=== PATIENT | male | born 1980 | race Caucasian/White ===

== ENCOUNTER 2021-08-03 12:21 | Emergency (ER) | payer SELFPAY ==
[2021-08-03 12:57] VITALS: BP 216/152; PULSE 95; RESP 18; TEMP 36.5; O2SAT 100
--- NOTE | 2021-08-03 13:37 | ED.WOUNDLAC ---
HPI - Wound/Laceration General Chief Complaint: Wound/Laceration Stated Complaint: Laceration on finger Time Seen by Provider: 08/03/21 13:37 Source: patient Mode of arrival: ambulatory Limitations: no limitations History of Present Illness HPI narrative: 41-year-old male presents to the [facility] with complaints of a finger laceration. Patient states that he was cutting meat approximately 1150 today when the knife slipped and cut his finger. Bleeding is controlled. Last Tdap over 10 years. Related Data Home Medications Medication Instructions Recorded Confirmed No Home Medications 08/03/21 08/03/21 Allergies Allergy/AdvReac Type Severity Reaction Status Date / Time No Known Allergies Allergy Unverified 08/03/21 13:07 Review of Systems Review of Systems: All systems reviewed & are unremarkable except as noted in HPI and below Constitutional: Constitutional: Reports no additional constitutional complaints, Denies chills and Denies fever(s) Eyes: Eyes: Reports no additional eye complaints Cardiovascular: Cardiovascular: Reports no additional cardiovascular complaints Respiratory: Respiratory: Reports no additional respiratory complaints, Denies cough and Denies dyspnea Musculoskeletal: Musculoskeletal: Reports no additional musculoskeletal complaints Integumentary/Breasts: Skin/Breast: Reports as per HPI Comments: Laceration dorsal aspect left index finger 2.2 cm, bleeding controlled Neurologic: Reports system reviewed and no additional complaints, except as documented Psychiatric: Psychiatric: Reports no additional psychiatric complaints Allergic/Immunologic: Allergic/Immunologic: Reports no additional allergic/immunologic complaints PMFSH Comments Patient denies any past medical or surgical history. At the time of my signature, I reviewed and agree with the nursing past medical, surgical, social, and family history. There is no relevant family history pertinent to the patient complaint. Exam Const: General: healthy appearing, no acute distress and alert Nutritional Appearance: well nourished and obese Orientation/consciousness: patient oriented x3 Limitations: no limitations HENMT: Head: normal to inspection Eyes: Pupils: Equal, round and reactive pupils present Neck: Neck: normal visual inspection, no lymphadenopathy and no meningeal signs Chest: Chest palpation & inspection: normal inspection of the chest Resp: Effort & Inspection: normal respiratory effort and no use of accessory muscles Auscultation: clear to auscultation bilaterally, no crackles, no rales, no rhonchi and no wheezes Cardio: Rate: regular rate Rhythm: regular rhythm GI: GI Palp: Yes Soft to palpation and No Tenderness to palpation present (GI) Skin: General skin exam: normal color Wounds: wounds noted (Right second finger dorsal asked) Neuro: General: patient oriented x3, moves all extremities, no meningeal signs and no focal motor deficits Speech: normal speech Gait exam (Neuro): Normal gait present Extrem: General: normal to inspection Psych: Appearance: well kempt Mental Status: mental status grossly normal Affect: normal affect Attitude: cooperative Course Course Emergency Course: Discharge instructions reviewed with patient, as well as provided in writing per nursing staff. The instructions also include specific and strict return/GO TO THE ER as well as f/u information. All questions have been answered, and the patient deny any further questions with discharge and discharge plan. Vital Signs Vital signs: Vital Signs Temperature 97.7 F 08/03/21 12:57 Pulse Rate 95 08/03/21 12:57 Respiratory Rate 18 08/03/21 12:57 Blood Pressure 216/152 H 08/03/21 12:57 Pulse Oximetry 100 08/03/21 12:57 Temperature 97.7 F 08/03/21 12:57 Pulse Rate 95 08/03/21 12:57 Respiratory Rate 18 08/03/21 12:57 Blood Pressure 175/130 H 08/03/21 13:45 Pulse Oximetry 100 08/03/21 12:57 Reviewed
[2021-08-03 13:45] VITALS: BP 175/130
[2021-08-03] MEDS: LIDOCAINE HCL 1% LOCAL INJ 20 ML VIAL 5 ML INFILTRATE (13:46)
[2021-08-03] MEDS: TETANUS,DIPHTHERIA,AC PERTUSSIS ADULT (0.5 ML) BOOSTRIX IM (13:46)
== END 2021-08-03 14:18 | disposition home or self-care (01) ==
PROVIDERS: Emergency Provider Nurse Practitioner
DX: S61.211A Laceration without foreign body of left index finger without damage to nail, initial encounter (principal); Z23 Encounter for immunization; W26.0XXA Contact with knife, initial encounter
CPT/HCPCS: 90471; 90715; 99212; G0463

== ENCOUNTER 2022-06-17 08:49 | Outpatient (CLI) | payer OTHER, SELFPAY ==
--- NOTE | 2022-07-03 22:12 | WPDHOMESLEEP ---
Sleep Study - Home Unattended Date of Study: 06/17/22 Ordering Provider: Adrian Osman DO Interpreting Provider: Viri Hernández DO Home Sleep Study Type: Watch PAT Height: 1.75 m Weight: 120.202 kg Body Mass Index: 39.1 Neck Circumference (inches): 18 [place]: 12 Reason for Sleep Study Loud snoring, multiple nighttime awakenings, gasping for air Sleep History The patient is a 42-year-old male with hypertension, seasonal allergies and GERD that had a sleep study ordered by his primary care physician for evaluation of sleep apnea. The patient occasionally awakens from sleep short of breath. He rarely awakens at night with heartburn, belching or cough. He constantly snores loud enough that others complain. He occasionally has trouble sleeping when he has a cold. He he occasionally wakes up gasping for air throughout the night. He frequently has breathing problems at night observed by himself or others. He occasionally sweats excessively at night. He rarely has heart palpitations or irregular heartbeats during the night. He occasionally falls asleep during the day but rarely while driving. He denies sleep paralysis, cataplexy and hypnagogic / hypnopompic hallucinations. He rarely has trouble at school or work due to sleepiness. He rarely has nightmares. He occasionally remembers his dreams. He frequently has thoughts racing through his mind. He occasionally feels sad, depressed or anxious. He frequently has muscular tension. He frequently notices parts of his body jerk. He occasionally kicks during the night. He occasionally has crawling and aching feelings in his legs and occasionally has leg pain during the night. He rarely grinds his teeth during sleep and denies awakening with morning jaw pain. He is occasionally bothered by pain during the day but rarely awakened by pain during the night. He occasionally wakes up feeling stiff in the morning. He frequently wakes up with sore achy muscles. He frequently wakes up with pain in the neck, spine or other joints. He goes to bed between 9-10 p.m. on both weekdays and weekends. It takes him 15-20 minutes to fall asleep. He wakes up 3-4 times throughout the night to urinate. He is able to fall back asleep within 15-20 minutes. He wakes up at 6:30 a.m. on weekdays and 7:00 a.m. on the weekends. He typically gets 6-7 hours of sleep per night. He will stay in bed for 5-10 minutes after waking up in the morning. He currently lives with his and 2 children. He will consume caffeinated tea within 2 hours of bedtime. He does not engage in physical exercise before bedtime. He will watch television before falling asleep. He denies taking naps in the afternoon or the evening. He drinks 4-5 caffeinated beverages per day. He denies tobacco, alcohol and recreational drug use. 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
[2022-07-03 22:24] VITALS: BMI 39.1
== END 2022-06-18 11:00 | disposition home or self-care (01) ==
LOC: ANHCSM 08:51
PROVIDERS: PCP Family Medicine; Visit Provider Family Medicine
DX: G47.30 Sleep apnea, unspecified (principal); G47.33 Obstructive sleep apnea (adult) (pediatric)
CPT/HCPCS: 95800

== ENCOUNTER 2022-07-28 08:01 | Outpatient (CLI) | payer OTHER, SELFPAY ==
--- NOTE | 2022-08-25 19:35 | WPDSLEEPSTUD ---
Sleep Study Date of Study: 07/28/22 Ordering Provider: Adrian Osman DO Interpreting Physician: Yoselin Daniels MD Sleep Study Type: BiPAP Titration Height: 1.73 m Weight: 117.934 kg Body Mass Index: 39.5 Neck Circumference (inches): 18.5 [place]: 9 Reason for Sleep Study * 06/17/2022 home sleep test with Watch Pat showing severe obstructive sleep apnea, AHI 64.7 with desaturation to 65%. He presents now for titration. Sleep History Nick Ni is a 42-year-old male with hypertension, seasonal allergies and GERD who had a home sleep test 06/17/2022 showing severe obstsructive sleep apnea, AHI 64.7 and desaturaiton to 65%. He had 106.4 minutes below 88%. HIs sleep history is obtained from his initial sleep survery. The patient occasionally awakens from sleep short of breath.? He rarely awakens at night with heartburn, belching or cough.? He constantly snores loud enough that others complain.? He occasionally has trouble sleeping when he has a cold.? He he occasionally wakes up gasping for air throughout the night.? He frequently has breathing problems at night observed by himself or others.? He occasionally sweats excessively at night.? He rarely has heart palpitations or irregular heartbeats during the night.? He occasionally falls asleep during the day but rarely while driving.? He denies sleep paralysis, cataplexy and hypnagogic / hypnopompic hallucinations.? He rarely has trouble at school or work due to sleepiness.? He rarely has nightmares.? He occasionally remembers his dreams.? He frequently has thoughts racing through his mind.? He occasionally feels sad, depressed or anxious.? He frequently has muscular tension.? He frequently notices parts of his body jerk.? He occasionally kicks during the night.? He occasionally has crawling and aching feelings in his legs and occasionally has leg pain during the night.? He rarely grinds his teeth during sleep and denies awakening with morning jaw pain.? He is occasionally bothered by pain during the day but rarely awakened by pain during the night.? He occasionally wakes up feeling stiff in the morning.? He frequently wakes up with sore achy muscles.? He frequently wakes up with pain in the neck, spine or other joints.? He goes to bed between 9-10 p.m. on both weekdays and weekends.? It takes him 15-20 minutes to fall asleep.? He wakes up 3-4 times throughout the night to urinate.? He is able to return to sleep within 15-20 minutes.? He wakes up at 6:30 a.m. on weekdays and 7:00 a.m. on the weekends.? He typically gets 6-7 hours of sleep per night.? He will stay in bed for 5-10 minutes after waking up in the morning.? He currently lives with his and 2 children.? He will consume caffeinated tea within 2 hours of bedtime.? He denies taking naps in the afternoon or the evening.? Habits: He drinks 4-5 caffeinated beverages per day.? He denies tobacco, alcohol and recreational drug use. 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
[2022-08-25 20:26] VITALS: BMI 39.5
--- NOTE | 2022-10-19 15:10 | SLEEP ---
pt c/o too much air he states he is wearing machine 6- 7 hours nightly
--- NOTE | 2023-02-21 13:13 | SLEEP ---
pt advised to call sleep md for further help
== END 2022-07-29 05:53 | disposition home or self-care (01) ==
LOC: ANHCSM 08:02
PROVIDERS: PCP Family Medicine; Visit Provider Family Medicine
DX: G47.33 Obstructive sleep apnea (adult) (pediatric) (principal)
CPT/HCPCS: 95811

== ENCOUNTER 2023-11-17 11:32 | Outpatient (CLI) | payer BC, SELFPAY ==
[2023-11-17 19:49] LABS: Alanine Aminotransferase 67 U/L (6-50); Albumin Level 4.4 g/dL (3.5-5.1); Alkaline Phosphatase 93 U/L (38-126); Anion Gap 8 mmol/L (8-16); Aspartate Amino Transferase 66 U/L (17-59); Bilirubin,Total 1.1 mg/dL (0.2-1.3); Blood Urea Nitrogen 16 mg/dL (9-20); Calcium 9.2 mg/dL (8.4-10.2); Carbon Dioxide 31 mmol/L (22-30); Chloride 102 mmol/L (98-107); Cholesterol 204 mg/dL (0-200); Estimated Glomerular Filt Rate > 60; Glucose 77 mg/dL (65-110); HDL Direct 37 mg/dL; Potassium 2.9 mmol/L (3.4-5.0); Sodium 141 mmol/L (137-145); Triglycerides 163 mg/dL (<150)
[2023-11-17 20:01] LABS: LDL Cholesterol Direct 128 mg/dL
[2023-11-17 21:22] LABS: Hemoglobin A1C 5.7 % (<5.7)
== END 2023-11-17 11:33 | disposition home or self-care (01) ==
LOC: ANHGOSHLAB 11:33
PROVIDERS: PCP Family Medicine; Visit Provider Family Medicine
DX: E78.5 Hyperlipidemia, unspecified (principal); Z13.228 Encounter for screening for other metabolic disorders; R73.9 Hyperglycemia, unspecified
CPT/HCPCS: 36415; 80053; 80061; 83036